=== PATIENT | male | born 1960 ===

== ENCOUNTER → 2024-07-19 12:36 | Outpatient (REF) | payer MEDICARE, BC, SELFPAY | LOC: RCS 12:36 | PROVIDERS: ATTENDING PHYSICIAN Internal Medicine Cardiovascular Disease; FAMILY PHYSICIAN Physician Assistant Medical | DX: E78.5 Hyperlipidemia, unspecified (principal); I25.10 Atherosclerotic heart disease of native coronary artery without angina pectoris; Z91.89 Other specified personal risk factors, not elsewhere classified | CPT/HCPCS: 93017; 93350 ==